=== PATIENT | female | born 1995 | race Two or more races ===

== ENCOUNTER 2024-01-06 13:23 | Emergency (ER) | payer MEDICAID ==
[~2024-01-06] VITALS: Ht 162.6 cm; Wt 65.0 kg
[2024-01-06 13:27] VITALS: BP 104/59; PULSE 62; RESP 16; TEMP 98.2; O2SAT 99
[2024-01-06] MEDS: ONDANSETRON 4MG ODT PO ONE (14:24)
[2024-01-06] MEDS: ACETAMINOPHEN 325MG TABLET PO ONE (14:24)
[2024-01-06 15:16] LABS: BASOPHILS % 1.2 % (0.0-2.0); EOSINOPHILS % 0.4 % (0.0-5.0); HEMATOCRIT. 39.1 % (36.0-48.0); HEMOGLOBIN. 12.9 g/dL (12.0-16.0); MEAN CORPUSCULAR HEMOGLOBIN 29.1 pg (28.0-32.0); MEAN CORPUSCULAR VOLUME 88.1 fL (81.0-99.0); MONOCYTES % 8.9 % (2.0-8.0); NEUTROPHILS % 59.5 % (40.0-76.0); PLATELET 361 x1000/uL (130-400); RED BLOOD CELL COUNT 4.44 mill/uL (4.2-5.4); RED CELL DISTRIBUTION WIDTH 14.8 % (11.6-14.6); WHITE BLOOD COUNT 6.5 x1000/uL (4.5-11.0)
[2024-01-06 15:34] LABS: CLARITY URINE CLOUDY (CLEAR); COLOR URINE DARK YELLOW (YELLOW); GLUCOSE URINE NEGATIVE (NEGATIVE); KETONES URINE 4+ (NEGATIVE); LEUKOCYTE ESTERASE URINE TRACE (NEGATIVE); NITRITE URINE NEGATIVE (NEGATIVE); OCCULT BLOOD URINE NEGATIVE (NEGATIVE); PROTEIN URINE 1+ (NEGATIVE); SPECIFIC GRAVITY URINE 1.037 (1.005-1.030)
[2024-01-06 15:43] LABS: ALANINE AMINOTRANSFERASE 14 IU/L (10-49); ASPARTATE AMINOTRANSFERASE 17 IU/L (<34); B-HCG QUANTITATIVE 68752 mIU/mL (<3); BILIRUBIN TOTAL 1.6 mg/dL (0.1-1.0); CALCIUM 9.9 mg/dL (8.7-10.4); CARBON DIOXIDE 23 mEq/L (21-32); CHLORIDE 100 mEq/L (98-107); CREATININE 0.7 mg/dL (0.6-1.0); GLUCOSE 74 mg/dL (70-105); POTASSIUM 3.5 mEq/L (3.5-5.1); PROTEIN TOTAL 8.6 g/dL (6.0-8.3); SODIUM 134 mEq/L (136-145); UREA NITROGEN BLOOD 10 mg/dL (9-23)
[2024-01-06 15:54] LABS: RBC URINE 0-2 /hpf (0-2); SQUAMOUS EPITHELIAL CELL URINE 3+ /lpf (RARE/1+)
[2024-01-06 15:55] LABS: BACTERIA URINE 3+; MUCUS URINE 3+ /lpf (< = 2+)
[2024-01-06 16:43] LABS: BETA HYDROXYBUTYRATE 1.8 mMol/L (0.0-0.3)
[2024-01-06] MEDS: SODIUM CHLORIDE 0.9% 1,000 ML IV ONE (17:00)
[2024-01-06] MEDS: ONDANSETRON HCL 4MG/2ML INJ IV ONE (17:56)
[2024-01-06] MEDS ORDERED: CEPH500C2 MT (19:10)
[2024-01-06] MEDS ORDERED: ONDA4TAB11 PO (19:10)
== END 2024-01-06 20:03 | disposition home or self-care (01) ==
LOC: ER 13:23
DX: O21.0 Mild hyperemesis gravidarum (principal); J45.909 Unspecified asthma, uncomplicated; Z3A.01 Less than 8 weeks gestation of pregnancy
CPT/HCPCS: 80053; 81003; 81025; 82010; 80320; 84702; 83690; 85025; 36415; 71045; 76801; 76817; 96361; 96374; 99285; Q0162; J2405; J7030; Z7610 ×2; C1893; G0480

== ENCOUNTER 2024-05-29 07:11 | Emergency (ER) | payer MEDICAID ==
[~2024-05-29] VITALS: Ht 170.2 cm; Wt 66.0 kg
[~2024-05-29 07:11] MED LIST: CEPH500C2 MT; ONDA4TAB11 PO
[2024-05-29 07:32] VITALS: O2SAT 100
[2024-05-29 09:14] LABS: BASOPHILS % 0.8 % (0.0-2.0); HEMATOCRIT. 38.4 % (36.0-48.0); HEMOGLOBIN. 12.6 g/dL (12.0-16.0); LYMPHOCYTES % 13.1 % (20.0-50.0); MEAN CORPUSCULAR HEMOGLOBIN 28.5 pg (28.0-32.0); MEAN CORPUSCULAR HGB CONC 32.9 g/dL (31.0-37.0); MEAN CORPUSCULAR VOLUME 86.7 fL (81.0-99.0); MEAN PLATELET VOLUME 6.8 fl (7.4-10.4); MONOCYTES % 2.9 % (2.0-8.0); NEUTROPHILS % 83.2 % (40.0-76.0); PLATELET 524 x1000/uL (130-400); RED BLOOD CELL COUNT 4.43 mill/uL (4.2-5.4); RED CELL DISTRIBUTION WIDTH 15.6 % (11.6-14.6); WHITE BLOOD COUNT 11.8 x1000/uL (4.5-11.0)
[2024-05-29 09:25] LABS: PROTHROMBIN TIME 11.4 sec (9.6-11.0)
[2024-05-29 09:27] LABS: CHLORIDE 106 mEq/L (98-107); SODIUM 137 mEq/L (136-145)
[2024-05-29 09:28] LABS: CARBON DIOXIDE 23 mEq/L (21-32)
[2024-05-29 09:33] LABS: CREATININE 0.7 mg/dL (0.6-1.0); HCG SCREEN NEGATIVE
[2024-05-29 09:34] LABS: ETHANOL BLOOD < 10 mg/dL (<10); GLUCOSE 86 mg/dL (70-105); UREA NITROGEN BLOOD 8 mg/dL (9-23)
[2024-05-29] MEDS: HYDROCODONE/ACETAMINOPHEN 5/325MG TABLET PO ONE (09:41)
[2024-05-29] MEDS ORDERED: IBUP-2028 MT (11:33)
[2024-05-29] MEDS ORDERED: TOPUD PO (11:33)
[2024-05-29] MEDS: IBUPROFEN 400MG TABLET PO ONE (11:52)
[2024-05-29 11:55] VITALS: BP 132/71; PULSE 76; RESP 16; TEMP 98.7
== END 2024-05-29 11:56 ==
LOC: ER 07:21
DX: M25.521 Pain in right elbow (principal); M79.671 Pain in right foot; R51.9 Headache, unspecified; J45.909 Unspecified asthma, uncomplicated; W17.89XA Other fall from one level to another, initial encounter; Y93.89 Activity, other specified; Y92.89 Other specified places as the place of occurrence of the external cause; Y99.8 Other external cause status
CPT/HCPCS: 80048; 80320; 84703; 85025; 85610; 36415; 73502; 73080; 73110; 73562; 73610; 73630; 70450; 72125; 99284; Z7610 ×2; G0480

== ENCOUNTER 2024-07-05 22:26 | Emergency (ER) | payer MEDICAID, OTHER ==
[~2024-07-05] VITALS: Ht 170.2 cm; Wt 67.0 kg
[~2024-07-05 22:26] MED LIST changes: +IBUP-2028 MT; +TOPUD PO
[2024-07-05 23:04] VITALS: BP 114/75; PULSE 78; RESP 16; TEMP 98.3; O2SAT 100
[2024-07-06] MEDS: ACETAMINOPHEN 325MG TABLET PO ONE (01:45)
== END 2024-07-06 05:35 | disposition home or self-care (01) ==
LOC: ER 22:26
DX: S09.8XXA Other specified injuries of head, initial encounter (principal); S20.212A Contusion of left front wall of thorax, initial encounter; M54.2 Cervicalgia; M25.512 Pain in left shoulder; J45.909 Unspecified asthma, uncomplicated; D64.9 Anemia, unspecified; Z91.013 Allergy to seafood; Z91.040 Latex allergy status; V98.8XXA Other specified transport accidents, initial encounter; Y93.89 Activity, other specified; Y92.89 Other specified places as the place of occurrence of the external cause; Y99.8 Other external cause status
CPT/HCPCS: 99291; 71045; 73030; 73562; 70450; 72125; Z7610

== ENCOUNTER 2025-06-26 17:55 | Emergency (ER) | payer OTHER ==
[~2025-06-26] VITALS: Ht 167.6 cm; Wt 60.0 kg
[~2025-06-26 17:55] MED LIST changes: +ONDA-239 PO; -ONDA4TAB11 PO
[2025-06-26 17:59] VITALS: TEMP 36.9; O2SAT 100
[2025-06-26] MEDS: IBUPROFEN 400MG TABLET PO ONE (18:45)
[2025-06-26 19:07] LABS: GLUCOSE URINE NEGATIVE (NEGATIVE); KETONES URINE 1+ (NEGATIVE); LEUKOCYTE ESTERASE URINE 1+ (NEGATIVE); NITRITE URINE NEGATIVE (NEGATIVE); OCCULT BLOOD URINE NEGATIVE (NEGATIVE); PH URINE 8.5 (4.5-8.0); PROTEIN URINE TRACE (NEGATIVE); SPECIFIC GRAVITY URINE 1.021 (1.005-1.030); UROBILINOGEN URINE 1.0 E.U./dL (0.2-1.0)
[2025-06-26 19:20] LABS: CLARITY URINE SL HAZY (CLEAR); COLOR URINE STRAW (YELLOW)
[2025-06-26 19:21] LABS: RBC URINE NONE SEEN /hpf (0-2); SQUAMOUS EPITHELIAL CELL URINE 1+ /lpf (RARE/1+)
[2025-06-26 19:22] LABS: BACTERIA URINE TRACE; MUCUS URINE TRACE /lpf (< = 2+)
[2025-06-26 19:29] LABS: INFLUENZA TYPE A Presumptive Negative (Pres. Neg.); INFLUENZA TYPE B Presumptive Negative (Pres. Neg.)
[2025-06-26] MEDS ORDERED: IBUP-2028 MT (21:11)
[2025-06-26] MEDS ORDERED: CEPH500C2 MT (21:11)
[2025-06-26 21:32] VITALS: BP 110/74; PULSE 86; RESP 18; O2SAT 98
== END 2025-06-26 21:34 | disposition home or self-care (01) ==
LOC: ER 17:55
DX: N39.0 Urinary tract infection, site not specified (principal); D25.9 Leiomyoma of uterus, unspecified; J45.909 Unspecified asthma, uncomplicated; Z20.822 Contact with and (suspected) exposure to COVID-19; Z91.013 Allergy to seafood; Z88.8 Allergy status to other drugs, medicaments and biological substances
CPT/HCPCS: 76830; 76856; 81003; 81025; 87426; 87804; 99284